=== PATIENT | male | born 1975 ===

== ENCOUNTER 2022-07-04 13:07 | Emergency (ER) | payer OTHER | END 2022-07-04 13:54 | disposition home or self-care (01) | LOC: MW.ED 13:07 | DX: Z13.39 Encounter for screening examination for other mental health and behavioral disorders (principal); J45.909 Unspecified asthma, uncomplicated; Z79.51 Long term (current) use of inhaled steroids | CPT/HCPCS: 99283; 99284 ==

== ENCOUNTER 2023-03-24 12:11 | Emergency (ER) | payer OTHER ==
[2023-03-24] MEDS ORDERED: OLANZapine 10 MG Vial ONE (12:17)
[2023-03-24] MEDS ORDERED: OLANZapine 10 MG in Water For Injection, Sterile 2.1 ML IM ONE (12:17)
[2023-03-24] MEDS ORDERED: Water For Injection, Sterile 20 ML ONE (12:17)
[2023-03-24 12:47] LABS: BASOPHILS ABSOLUTE AUTO 0.06 K/uL (0.00-0.20); EOSINOPHILS ABSOLUTE AUTO 0.46 K/uL (0.00-0.45); EOSINOPHILS PERCENT AUTO 7.3 % (0.0-6.0); HEMATOCRIT 46.3 % (42.0-52.0); HEMOGLOBIN 16.1 g/dL (14.0-18.0); IMMATURE GRAN ABSOLUTE AUTO 0.04 K/uL (0.00-0.05); IMMATURE GRAN PERCENT AUTO 0.6 % (0.0-0.4); LYMPHOCYTES ABSOLUTE AUTO 1.34 K/uL (1.00-4.80); LYMPHOCYTES PERCENT AUTO 21.3 % (24.0-44.0); MEAN CORPUSCULAR HEMOGLOBIN 30.5 pg (28.0-32.0); MEAN CORPUSCULAR HGB CONC 34.8 g/dL (32.0-36.0); MEAN CORPUSCULAR VOLUME 87.7 fL (83.0-99.0); MEAN PLATELET VOLUME 8.8 fL (9.4-12.4); MONOCYTES PERCENT AUTO 7.9 % (0.0-8.0); NEUTROPHILS ABSOLUTE AUTO 3.89 K/uL (1.80-7.70); NEUTROPHILS PERCENT AUTO 61.9 % (41.0-71.0); PLATELET COUNT,PLT 237 K/uL (150-400); RED BLOOD CELL COUNT 5.28 M/uL (4.52-5.90); WHITE BLOOD CELL COUNT,WBC 6.29 K/uL (3.9-11.3)
[2023-03-24 13:26] LABS: A/G RATIO 1.1 (0.9-1.6); ACETAMINOPHEN <2.0 ug/mL; ALANINE AMINOTRANSFERASE,ALT 26 IU/L (14-63); ALBUMIN 3.8 g/dL (3.4-5.0); ALKALINE PHOSPHATASE 81 U/L (46-116); ASPARTATE AMNIOTRANSFERASE,AST 16 IU/L (15-37); BILIRUBIN TOTAL 0.3 mg/dL (0.2-1.0); BLOOD UREA NITROGEN,BUN 14 mg/dL (7.0-18.0); CALCIUM 9.3 mg/dL (8.5-10.1); CARBON DIOXIDE,CO2 26.5 mmol/L (21.0-32.0); CHLORIDE,CL 108 mmol/L (98-107); CREATININE 1.1 mg/dL (0.8-1.3); ESTIMATED GFR 82 mL/min (>60); ETHANOL BLOOD MEDICAL 149 mg/dL; GLUCOSE RANDOM 95 mg/dL (74-106); MAGNESIUM 2.2 mg/dL (1.8-2.4); POTASSIUM,K 3.5 mmol/L (3.5-5.1); PROTEIN TOTAL,TP 7.4 g/dL (6.4-8.2); SALICYLATE 0.5 mg/dL (0.0-20.0); SODIUM,NA 146 mmol/L (136-148); TSH ULTRASENSITIVE 1.62 uIU/mL (0.36-3.74)
== END 2023-03-24 18:39 | disposition home or self-care (01) ==
LOC: MW.ED 12:11
DX: F10.929 Alcohol use, unspecified with intoxication, unspecified (principal)
CPT/HCPCS: 36415; 80053; 80143; 80179; 80307; 83735; 84443; 85025; 93005; 96372; 99284; J2405; J3490